=== PATIENT | female | born 1940 | race Caucasian/White ===

== ENCOUNTER 2021-08-10 05:02 | Observation (INO) ==
--- NOTE | 2021-07-12 13:49 | PAT Medication Instructions ---
Medication Instructions Date of Service July 12, 2021 Home Medications ascorbic acid (vitamin C) 1,500 mg tablet,extended release 1,500 mg PO QAM aspirin 81 mg capsule 81 mg PO QAM atenolol 50 mg-chlorthalidone 25 mg tablet 1 tab PO QAM calcium citrate 315 mg calcium-vitamin D3 6.25 mcg (250 unit) tablet (Citracal + Vitamin D Maximum) 1 tab PO QAM cholecalciferol (vitamin D3) 125 mcg (5,000 unit) tablet (Vitamin D3) 125 mcg PO QAM collagen,hydrolysate 500 mg-biotin 800 mcg-ascorbic acid 50 mg capsule 1 cap PO QAM cranberry extract 250 mg tablet 259 mg PO QAM denosumab 60 mg/mL subcutaneous syringe (Prolia) 60 mg SUBCUT UD famotidine 40 mg tablet 40 mg PO BID glucosamine-chondroitin 250 mg-200 mg tablet (Osteo Bi-Flex) 2 tab PO QAM loratadine 10 mg tablet 10 mg PO QAM lorazepam 0.5 mg tablet 0.5 mg PO HS PRN milk thistle 500 mg capsule 500 mg PO QAM multivit with ucrrsqts-jaqv-GW-lutein 8 mg iron-400 mcg-300 mcg tablet (Centrum Silver Women) 1 tab PO QAM omega-3 fatty acids 1,000 mg PO QAM piroxicam 10 mg capsule 10 mg PO UD PRN vitamin A-vitamin C-vit E-min tablet 1 tab PO QAM vitamin B complex 1 tab PO QAM vitamin E 200 unit tablet 45 mg PO QAM Continue as directed denosumab 60 mg/mL subcutaneous syringe (Prolia) 60 mg SUBCUT UD (not day of surgery) ASK your surgeon for instructions piroxicam 10 mg capsule 10 mg PO UD PRN STOP taking 2 weeks before surgery collagen,hydrolysate 500 mg-biotin 800 mcg-ascorbic acid 50 mg capsule 1 cap PO QAM glucosamine-chondroitin 250 mg-200 mg tablet (Osteo Bi-Flex) 2 tab PO QAM milk thistle 500 mg capsule 500 mg PO QAM omega-3 fatty acids 1,000 mg PO QAM vitamin A-vitamin C-vit E-min tablet 1 tab PO QAM vitamin B complex 1 tab PO QAM vitamin E 200 unit tablet 45 mg PO QAM DO NOT take the morning of surgery ascorbic acid (vitamin C) 1,500 mg tablet,extended release 1,500 mg PO QAM calcium citrate 315 mg calcium-vitamin D3 6.25 mcg (250 unit) tablet (Citracal + Vitamin D Maximum) 1 tab PO QAM cholecalciferol (vitamin D3) 125 mcg (5,000 unit) tablet (Vitamin D3) 125 mcg PO QAM cranberry extract 250 mg tablet 259 mg PO QAM loratadine 10 mg tablet 10 mg PO QAM multivit with wpntljya-piya-YT-lutein 8 mg iron-400 mcg-300 mcg tablet (Centrum Silver Women) 1 tab PO QAM Take morning of surgery With a small sip of water, OTHERWISE NOTHING TO EAT OR DRINK AFTER MIDNIGHT: aspirin 81 mg capsule 81 mg PO QAM (unless directed otherwise by surgeon) atenolol 50 mg-chlorthalidone 25 mg tablet 1 tab PO QAM famotidine 40 mg tablet 40 mg PO BID Take evening before surgery famotidine 40 mg tablet 40 mg PO BID lorazepam 0.5 mg tablet 0.5 mg PO HS PRN(if needed) Other Notes If you have any questions please call us at [phone] or [phone] or [phone] or [phone]
--- NOTE | 2021-07-14 11:54 | Anesthesiology Consultation ---
Date of Service July 14, 2021 Assessment & Plan (1) Encounter for pre-operative examination: - Patient acceptable risk for surgery pending surgeon-ordered preop UA (patient taking sample to [facility]). - COVID screening: Per assessment on 07/14: No known COVID-19 positive contacts or current COVID-19 related symptoms. Travel screen negative. Patient vaccinated. Surgeon arranging preop COVID testing. Awaiting results. - Hx PONV: Patient requests preop preventative therapy if possible - Heavy ETOH use: 3-5 drinks/day (typically whiskey)- mid afternoon/evening. No morning ETOH use. Chart Review Chart Review: Patient seen in Pre Admission Testing Teaching & Discussion Pre-Anesthesia Teaching/Discussion Notes: Instructed NPO after midnight before surgery,except medications with 15 cc of water. Medication instructions provid ed according to the PAT guidelines. History Surgery Operation Date: 08/10/21 07:15 Proposed Procedures p Left Total Knee Arthroplasty - Mario Redman MD Height/Weight Height: 5 ft 3.5 in Weight: 69.9 kg Allergies Allergy/AdvReac Type Severity Reaction Status Date / Time adhesive Allergy Intermediate Skin Verified 07/12/21 14:24 blistering Penicillins Allergy Intermediate Hives Verified 07/12/21 12:40 clindamycin Allergy Hot Verified 07/14/21 12:21 flashes, flushing meperidine [From Demerol] AdvReac Unknown Vomiting Verified 07/12/21 12:40 Medications Home Medications Medication Instructions Recorded Confirmed Last Taken ascorbic acid (vitamin C) 1,500 mg 1,500 mg PO QAM 07/12/21 07/12/21 Unknown tablet,extended release aspirin 81 mg capsule 81 mg PO QAM 07/12/21 07/12/21 Unknown atenolol 50 mg-chlorthalidone 25 1 tab PO QAM 07/12/21 07/12/21 Unknown mg tablet calcium citrate 315 mg 1 tab PO QAM 07/12/21 07/12/21 Unknown calcium-vitamin D3 6.25 mcg (250 unit) tablet (Citracal + Vitamin D Maximum) cholecalciferol (vitamin D3) 125 125 mcg PO QAM 07/12/21 07/12/21 Unknown mcg (5,000 unit) tablet (Vitamin D3) collagen,hydrolysate 500 mg-biotin 1 cap PO QAM 07/12/21 07/12/21 Unknown 800 mcg-ascorbic acid 50 mg capsule cranberry extract 250 mg tablet 259 mg PO QAM 07/12/21 07/12/21 Unknown denosumab 60 mg/mL subcutaneous 60 mg SUBCUT UD 07/12/21 07/12/21 Unknown syringe (Prolia) famotidine 40 mg tablet 40 mg PO BID 07/12/21 07/12/21 Unknown glucosamine-chondroitin 250 mg-200 2 tab PO QAM 07/12/21 07/12/21 Unknown mg tablet (Osteo Bi-Flex) loratadine 10 mg tablet 10 mg PO QAM 07/12/21 07/12/21 Unknown lorazepam 0.5 mg tablet 0.5 mg PO HS PRN 07/12/21 07/12/21 Unknown milk thistle 500 mg capsule 500 mg PO QAM 07/12/21 07/12/21 Unknown multivit with 1 tab PO QAM 07/12/21 07/12/21 Unknown eqjzmfzi-wupo-GL-lutein 8 mg iron-400 mcg-300 mcg tablet (Centrum Silver Women) omega-3 fatty acids 1,000 mg PO QAM 07/12/21 07/12/21 Unknown piroxicam 10 mg capsule 10 mg PO UD PRN 07/12/21 07/12/21 Unknown vitamin A-vitamin C-vit E-min 1 tab PO QAM 07/12/21 07/12/21 Unknown tablet vitamin B complex 1 tab PO QAM 07/12/21 07/12/21 Unknown vitamin E 200 unit tablet 45 mg PO QAM 07/12/21 07/12/21 Unknown Past Medical History Medical History GERD (gastroesophageal reflux disease) Hypertension Irregular heart beat 3 total episodes (early ), felt r/t dehydration, no current/recent issues Prediabetes Sleep apnea Does not use device Thyroid nodule s/p needle bx (benign) Exercise / Class Metabolic Activity III < 4 Walking/Shop/Light housework Past Surgical History Surgical History Nausea and vomiting after administration of anesthetic agent S/P breast biopsy 10 years ago S/P colonoscopy S/P D&C (status post dilation and curettage) S/P hysterectomy S/P tonsillectomy Past Anesthesia History No Hx of Anesthesia Complications (except PONV) and No Family Hx of Anesthesia Complications History of PONV No Hx of Motion Sickness and History of PONV (Pt requests preop preventative therapy if possible) Social History Smoking Status: Never smoker Do You Dip or Chew Tobacco: No Hx Alcohol Use: Yes (3 per day) Alcohol type: hard liquor alcohol intake frequency: 3 or more drinks per day (3-5 drinks/day (typically whiskey)) Hx Substance Use: No substance use type: does not use Review of Systems Patient denies chest pain, shortness of breath, fever, chills, cough, wheezing, palpitations. Physical Exam Vital Signs VITALS BP 138/76 P 84 TEMP 98.4 SP02 97%RA RESP 16 PHYSICAL Full cervical extension range of motion. Full TMJ range of motion. TMD 3 finger breaths Mallampati Score 3 Dentition: missing molars, + root canal repair Lungs: clear throughout to auscultation Cardiac: regular rate and rhythm, no murmurs noted Spine: normal Carotid arteries: negative bruit Extremities: no edema Lab Results Anesthesia Preop Results Results Anesthesia Widget: WBC 5.81 K/uL (4.8-10.8) 07/14/21 Hgb 14.6 g/dL (12.0-16.0) 07/14/21 Hct 42.4 % (37-47) 07/14/21 Plt 266 K/uL (130-400) 07/14/21 Na 133 mmol/L (136-145) L 07/14/21 K 3.3 mmol/L (3.5-5.1) L 07/14/21 Cl 94 mmol/L (98-107) L 07/14/21 CO2 29 mmol/L (21-32) 07/14/21 BUN 19 mg/dl (6-23) 07/14/21 Creat 0.65 mg/dl (0.6-1.2) 07/14/21 Glucose Level 152 mg/dl (70-99(Fasting)) H 07/14/21 PT 10.3 Seconds (9.0-12.0) 07/14/21 PTT 23.4 Seconds (21.0-31.0) 07/14/21 INR 1.0 (0.9-1.1) 07/14/21 HA1c 5.8 % (4.5-5.6) H 07/14/21 Blood Type A Negative 07/14/21 Antibody Screen NEGATIVE 07/14/21 Testing Electrocardiogram Date: 07/14/21 NSR at 79bpm. unconfirmed report. Chest X-Ray Date: 07/14/21 Findings: + NAD
--- NOTE | 2021-08-07 20:00 | History & Physical Report ---
Date of Service August 07, 2021 Assessment & Plan (1) Primary osteoarthritis of left knee: Plan: Treatment options discussed with patient. She has failed conservative measures as above. Risks, benefits and alternatives to surgery including but not limited to infection, DVT, pain, stiffness, need for revision surgery, damage to blood vessels, damage to nerves, PE, , were discussed with the patient and they wish to proceed. Plan on left total knee arthroplasty scheduled for [facility] on 08/10/[address] Redman. Will plan on aspirin 81mg twice daily post op for DVT prophylaxis, OPPT post op. All questions answered. F/u post op. History of Present Illness Chief Complaint: Left knee pain Primary Care Provider: Jasmin Noe 80 year old female with PMHx significant for HTN, SUNNY, GERD presents with ongoing left knee pain. Pain is interfering with her daily activities. She has failed conservative measures and would like to proceed with surgical intervention. Patient denies headaches, sweats, fevers, chills, double vision, blurred vision, cough, sore throat, dysphagia, chest pain, sob, wheezing, n/v/d/c, numbness, tingling, fatigue, urinary symptoms, mood disorders. ROS positive for left knee pain and stiffness. Allergies Allergy/AdvReac Type Severity Reaction Status Date / Time adhesive Allergy Intermediate Skin Verified 07/12/21 14:24 blistering Penicillins Allergy Intermediate Hives Verified 07/12/21 12:40 clindamycin Allergy Hot Verified 07/14/21 12:21 flashes, flushing meperidine [From Demerol] AdvReac Unknown Vomiting Verified 07/12/21 12:40 Home Medications Medication Instructions Recorded Confirmed Type ascorbic acid (vitamin C) 1,500 mg 1,500 mg PO QAM 07/12/21 07/12/21 History tablet,extended release aspirin 81 mg capsule 81 mg PO QAM 07/12/21 07/12/21 History atenolol 50 mg-chlorthalidone 25 1 tab PO QAM 07/12/21 07/12/21 History mg tablet calcium citrate 315 mg 1 tab PO QAM 07/12/21 07/12/21 History calcium-vitamin D3 6.25 mcg (250 unit) tablet (Citracal + Vitamin D Maximum) cholecalciferol (vitamin D3) 125 125 mcg PO QAM 07/12/21 07/12/21 History mcg (5,000 unit) tablet (Vitamin D3) collagen,hydrolysate 500 mg-biotin 1 cap PO QAM 07/12/21 07/12/21 History 800 mcg-ascorbic acid 50 mg capsule cranberry extract 250 mg tablet 259 mg PO QAM 07/12/21 07/12/21 History denosumab 60 mg/mL subcutaneous 60 mg SUBCUT UD 07/12/21 07/12/21 History syringe (Prolia) famotidine 40 mg tablet 40 mg PO BID 07/12/21 07/12/21 History glucosamine-chondroitin 250 mg-200 2 tab PO QAM 07/12/21 07/12/21 History mg tablet (Osteo Bi-Flex) loratadine 10 mg tablet 10 mg PO QAM 07/12/21 07/12/21 History lorazepam 0.5 mg tablet 0.5 mg PO HS PRN 07/12/21 07/12/21 History milk thistle 500 mg capsule 500 mg PO QAM 07/12/21 07/12/21 History multivit with 1 tab PO QAM 07/12/21 07/12/21 History yajmiwmc-qteb-FX-lutein 8 mg iron-400 mcg-300 mcg tablet (Centrum Silver Women) omega-3 fatty acids 1,000 mg PO QAM 07/12/21 07/12/21 History piroxicam 10 mg capsule 10 mg PO UD PRN 07/12/21 07/12/21 History vitamin A-vitamin C-vit E-min 1 tab PO QAM 07/12/21 07/12/21 History tablet vitamin B complex 1 tab PO QAM 07/12/21 07/12/21 History vitamin E 200 unit tablet 45 mg PO QAM 07/12/21 07/12/21 History Past Med/Surg History Medical History GERD (gastroesophageal reflux disease) Hypertension Irregular heart beat 3 total episodes (early ), felt r/t dehydration, no current/recent issues Prediabetes Sleep apnea Does not use device Thyroid nodule s/p needle bx (benign) Surgical History Nausea and vomiting after administration of anesthetic agent S/P breast biopsy 10 years ago S/P colonoscopy S/P D&C (status post dilation and curettage) S/P hysterectomy S/P tonsillectomy Social History Smoking Status: Never smoker Second Hand Exposure: No; Hx Alcohol Use: Yes (3 per day) Alcohol type: hard liquor Hx Substance Use: No Preferred Language: B[place] Communication Ability: Effective Rawhide Trimmer Required: No Beliefs That Will Affect Care: None Current Living Situation: Alone Current Living Situation Comment: son and family will help Feels Safe at Home: Yes Assistive Devices: Cane, Glasses, Hearing Aid - Bilateral and Walker Review of Systems All systems reviewed & are unremarkable except as noted in HPI & below Physical Exam Constitutional: well developed and well nourished; no acute distress Eyes: PERRL, conjunctivae normal, anicteric sclerae ENMT: external ear and nose normal, oropharynx normal Neck: trachea midline, no thyromegaly Respiratory: normal respiratory effort, lungs clear to auscultation Cardiovascular: RRR, no murmur, no edema Musculoskeletal: Left knee: Varus alignment. Medial joint line and medial patellar tenderness. Mild swelling. Moderate crepitation. Positive Hayley's. Positive valgus stress, negative varus. ROM 0-130 degrees. Skin: no rashes, warm and dry Neurologic: patellar DTR's 2+ bilat, sensation intact Psychiatric: A+Ox3, euthymic affect Results & Data ([facility]) Diagnostic Findings Left knee: Endstage osteoarthritis, likely insufficiency fracture vs AVN medial femoral condyle, bone on bone medial compartment with subluxation. Endstage OA PF compartment.
[2021-08-10] MEDS ORDERED: METOCLOPRAMIDE HCL 10 MG TABLET PO SCH (06:00)
[2021-08-10] MEDS ORDERED: FAMOTIDINE 20 MG TAB PO SCH (06:00)
[2021-08-10] MEDS ORDERED: ROPIVACAINE 0.5% HCL/PF 150 MG, BUPIVACAINE 0.75% MPF 20 ML, EPINEPHrine 30MG/30ML (OR ... INSTIL SCH (06:00)
[2021-08-10] MEDS ORDERED: ACETAMINOPHEN 500 MG TAB PO SCH (06:00)
[2021-08-10] MEDS ORDERED: LR 500ML BOLUS, THEN 15ML/HR IV SCH (06:00)
[2021-08-10] MEDS ORDERED: dexAMETHasone 4 MG TAB PO SCH (06:00)
[2021-08-10] MEDS ORDERED: CeleBREX 200 MG CAP PO SCH (06:00)
[2021-08-10] MEDS ORDERED: VANCOMYCIN HCL 1,000 MG in SODIUM CHLORIDE 0.9% 250 ML IV SCH ×2 (06:00→18:00)
[2021-08-10] MEDS ORDERED: TRANEXAMIC ACID 1,000 MG **IV Pre-op IV SCH (06:00)
[2021-08-10] MEDS ORDERED: TRANEXAMIC ACID 1,000 MG **IV Intra-op IV SCH (06:00)
[2021-08-10] MEDS ORDERED: GABAPENTIN 300 MG CAP PO SCH (06:00)
[2021-08-10] MEDS ORDERED: BUPIVACAINE 0.5 % 5 MG/1 ML PF 10ML VIAL ONE (06:23)
[2021-08-10] MEDS ORDERED: ROPIVACAINE 0.5% 5 MG/ML 30 ML VIAL ONE (06:23)
[2021-08-10] MEDS ORDERED: LIDOCAINE 2% 2 ML VIAL/AMP(20MG/ML) INFIL ONE (06:54)
[2021-08-10] MEDS ORDERED: MIDAZOLAM HCL 1 MG/ML 2ML VIAL ONE (06:55)
[2021-08-10] MEDS ORDERED: fentaNYL citrate 100 MCG/2 ML VIAL ONE (06:55)
--- NOTE | 2021-08-10 07:03 | History & Physical Bridge Note ---
Date of Service August 10, 2021 History & Physical Bridge Note I have examined the patient, reviewed the History & Physical and in the interval since the performance of the History & Physical I have noted the following changes of clinical significance: no changes noted
[2021-08-10] MEDS ORDERED: ORTHO JOINT ANESTHETIC ONE (07:11)
[2021-08-10] MEDS ORDERED: PHENYLEPHRINE HCL 10 MG/ML VIAL ONE (08:09)
[2021-08-10] MEDS ORDERED: ONDANSETRON INJ 2 MG/ML 2 ML VIAL ONE (08:09)
[2021-08-10] MEDS ORDERED: ATROPINE SULFATE 0.1 MG/ML 10ML SYR IV PRN (08:41)
[2021-08-10] MEDS ORDERED: ONDANSETRON INJ 2 MG/ML 2 ML VIAL IV PRN ×2 (08:41→12:03)
[2021-08-10] MEDS ORDERED: fentaNYL citrate 100 MCG/2 ML VIAL IV PRN (08:41)
[2021-08-10] MEDS ORDERED: PROMETHAZINE HCL 12.5 MG in SODIUM CHLORIDE 0.9% 50 ML IV PRN (08:41)
[2021-08-10] MEDS ORDERED: ePHEDrine sulfate 50 MG/ML AMP IV PRN (08:41)
[2021-08-10] MEDS ORDERED: PROPOFOL IV EMULSION 10 MG/ML 20 ML VIAL IV ONE (08:42)
--- NOTE | 2021-08-10 09:25 | Operative Report ---
Post Operative Report Pre & Post Diagnosis Operation Date: 08/10/21 07:15 Pre-Op Diagnosis: Left Knee Osteoarthritis Post-Op Diagnosis: Left Knee Osteoarthritis I identified the patient and participated in the time-out.: Yes Procedure Operation Date: 08/10/21 07:15 Actual Procedures p Left Total Knee Arthroplasty(Left) - Mario Redman MD Surgeon Mario Redman MD Stake Setter Cam EDWARDS Estimated Blood Loss 5 Findings Consistent with Post-Op Diagnosis Specimens Bone cuts Drains 2 Hemovac Complications none Disposition Disposition: Recovery Room Indications 80-year female with end-stage osteoarthritis left knee. Patient has evidence of an insufficiency fracture or AVN medial femoral condyle with slight collapse and [id number] medial compartment subluxation of the femur medial in the tibia and grade 4 medial compartment patellofemoral OA as well. Description of Procedure Patient was taken to the operating room placed supine on the operating table and anesthetized under spinal MAC regional block anesthesia. Exam under anesthesia demonstrated mild varus alignment of the knee good range of motion moderate effusion no instability. A pneumatic tourniquet was placed about the thigh of the left lower extremity. The left lower extremity was prepped and draped in usual sterile fashion. The leg was elevated exsanguinated with an Esmarch ba ndage and the pneumatic tourniquet was raised to 300 mm mercury. An anterior incision was made across the left knee. The skin was incised longitudinally subcutaneous flaps were elevated and an incision was made through the medial retinaculum extending up into the mid third of the quadriceps tendon and extended down to the medial tibial tubercle. Intra-articular findings demonstrated tricompartmental osteoarthritis [id number] medial compartment grade 4 osteoarthritis lateral femoral condyle grade 4 medial patellofemoral joint. The knee was exposed by excising the infrapatellar fat pad, excising the meniscal remnants and anterior cruciate ligament. Any inflamed synovial tissue was resected. The fat pad over the anterior femur was resected for placement of the component in that area. The lateral synovial bands were release. The femur was exposed. The custom femoral cutting block was pinned in position. The distal femoral cutting block was applied. The distal femoral cut was made with the oscillating saw. The size 6 4-in-1 cutting block was placed. The anterior and posterior chamfer cuts were made. The knee was extended and a subperiosteal peel lateral release was performed around the patella. The patella width was measured and width was reproduced using freehand cut technique. The 32 millimeter symmetrical patella was used. 3 drill holes are made for the pegs. The tibia was exposed. A custom tibial cutting block was positioned and drill holes were made for the cutting guide. Cutting guide was placed and the proximal cut was made with the oscillating saw. All osteophytes were resected. The lamina cook house supervisor was used to assess ligamentous balance and the ligaments were balanced in extension and flexion. The tibia was reexposed and measured for a size D tibial component. This was externally rotated in line with the tibial tubercle and the fixation pins were drilled. The proximal tibia was fashioned with the drill and punch. The size 6 CR femoral trial was inserted. The trial MC inserts were used. The 11 mm insert gave balanced ligaments through full range of motion. The patella tracked centrally. the trials were removed. The orthomix anesthetic cocktail was injected per protocol. The knee was then copiously irrigated with pulsatile lavage saline solution. The final components were cemented with Refobacin bone cement. The final components were [employer] persona left 6 narrow CR femoral component, D left tibial component, 11 mm MC tibial polyethylene, 32 symmetrical patella. After the cement cured with the knee in full extension the Betadine soak was used per protocol. The knee joint was copiously irrigated with pulsatile lavage saline solution . 2 drains were brought out laterally and connected to a Hemovac. The quadriceps tendon and medial retinaculum were closed with interrupted [id number] #1 Vicryl sutures. The knee was taken through a full range of motion and repair was secure. The subcutaneous tissues were closed with 2-0 Vicryl sutures and skin was closed with lakshmi. Sterile dressings were applied and the patient tolerated the procedure well. Cam EDWARDS my physician senior administrative assistant participated as first beater and was involved in all aspects of the procedure. He assisted in soft tissue retraction, instrument management ,leg positioning, the closure and will participate in the postoperative care of the patient. I attest to the content of the Intraoperative Record and any orders documented therein. Any exceptions are noted below.
--- NOTE | 2021-08-10 09:26 | Post Operative Brief Note ---
Immediate Post Op Note v1 Date of Surgery August 10, 2021 Pre & Post Diagnosis Operation Date: 08/10/21 07:15 Pre-Op Diagnosis: Left Knee Osteoarthritis Post-Op Diagnosis: Left Knee Osteoarthritis I identified the patient and participated in the time-out.: Yes Procedure Operation Date: 08/10/21 07:15 Actual Procedures p Left Total Knee Arthroplasty(Left) - Mario Redman MD Surgeon Mario Redman MD Respite Care Provider Cam EDWARDS Estimated Blood Loss 5 Findings Consistent with Post-Op Diagnosis Specimens Bone cuts Drains Hemovac Drain Anesthesia Type MAC Spinal Regional Complications none Disposition Disposition: Recovery Room Overlapping Procedure I was immediately available: during the entire case.
--- NOTE | 2021-08-10 10:14 | XRay Report ---
XR knee LT 1 or 2V routine HISTORY: 80 years-old Female Surgical Post Op left knee total joint arthroplasty COMPARISON: None TECHNIQUE: 3 views of the left knee FINDINGS: Total joint arthroplasty with patellar resurfacing. Anterior midline skin lakshmi are noted along wit h expected postoperative soft tissue swelling and deep tissue air with surgical drainage catheter. Il l-defined sclerosis involving the mid femoral diaphysis medullary space is likely benign. No acute fr acture or unexpected opaque foreign body. IMPRESSION: Total joint arthroplasty and patella resurfacing with expected postoperative changes. ACT 112: Negative or not required by law. The above report was generated using voice recognition software. It may contain grammatical, syntax o r spelling errors. Electronically signed by: Tez Enrique M.D. 08/10/2021 10:13 AM
--- NOTE | 2021-08-10 11:06 | Anesthesiology Progress Note ---
Date of Service August 10, 2021 Anesthesia Post Procedure Vital Signs Vital Signs: Temp Pulse Pulse Resp BP Pulse Ox 08/10/21 10:55 68 18 111/62 95 08/10/21 10:45 67 18 116/62 95 08/10/21 10:35 66 15 111/61 95 08/10/21 10:25 69 16 107/74 95 08/10/21 10:15 72 18 123/76 95 08/10/21 10:05 73 15 109/68 93 08/10/21 09:55 76 19 135/79 100 08/10/21 09:45 77 18 116/79 100 08/10/21 09:36 36.1 C L 77 15 101/64 100 08/10/21 05:28 36.5 C 70 20 152/90 H 97 Transfer of Care Handoff Completed per policy Notes Mental Status: alert / awake / arousable and participated in evaluation Patient Amnestic to Procedure: Yes Nausea / Vomiting: adequately controlled Pain: adequately controlled Airway Patency, RR, SpO2: stable & adequate BP & HR: stable & adequate Hydration State: stable & adequate Neuraxial Anesthesia: was administered and sensory block is resolving Anesthetic Complications: no major complications apparent
[2021-08-10] MEDS ORDERED: HYDROmorphone INJ 0.5 MG/0.5 ML SYR IV PRN (12:03)
[2021-08-10] MEDS ORDERED: NALOXONE HCL 0.4 MG/1 ML VIAL/CARP IV PRN (12:03)
[2021-08-10] MEDS ORDERED: MAGNESIUM HYDROXIDE SUSP 30 ML UDC PO PRN (12:03)
[2021-08-10] MEDS ORDERED: oxyCODONE HCL IR 5 MG TAB (IMMEDIATE RELEASE) PO PRN (12:03)
[2021-08-10] MEDS ORDERED: SODIUM CHLORIDE 0.9% 1000ML 1,000 ML IV SCH (12:03)
[2021-08-10] MEDS ORDERED: VANCOMYCIN CONSULT ACTIVE PRN (12:03)
[2021-08-10] MEDS ORDERED: bisacodyL 10 MG SUPP PR PRN (12:03)
[2021-08-10] MEDS ORDERED: METOCLOPRAMIDE HCL INJ 5 MG/ML 2 ML VIAL IV PRN (12:03)
--- NOTE | 2021-08-10 12:47 | Consultation ---
Date of Consultation August 10, 2021 Assessment & Plan (1) Primary osteoarthritis of left knee: (2) Hypertension: (3) GERD (gastroesophageal reflux disease): (4) Prediabetes: This is an 80 yr old F who has a significant PMH of HTN, pre diabetes, SUNNY not on CPAP and Gerd who presents for elective L TKA by Dr. Redman. L Knee Osteoarthritis S/P L TKA - POD # 0, Dr. Redman EBL 5ml tolerated procedure well Pain/wound management per orthopedics Activity and therapy as directed by orthopedics Encourage incentive spirometry DVT prophylaxis with ASA twice daily HTN Blood pressure controlled Continue atenolol/chlorthalidone with parameters GERD Continue famotidine Prediabetes A1c 5.8 on preop labs Given age lifestyle modifications recommended Alcohol dependence Drinks 3-4 whiskey drinks daily DELGADO as protocol with as needed oral Ativan Daily thiamine and folic acid DVT prophylaxis: ASA twice daily Dispo: Per primary PCP: HASMUKH Marroquin FULL CODE Pt was seen and examined in collaboration with Dr. Kwan, please see addendum Thank you for this consultation. We will follow the patient with you during their hospital stay. You can reach a member of the [facility] Hospitalist Team 11/09 via hospitalist role on tiger text. Supervising Physician Co-Signing Physician Notes Patient is an 80-year-old female with history of hypertension, obstructive sleep apnea and other comorbidities was consulted for postop medical management after having left total knee arthroplasty by . Patient is doing well postoperatively. She still has some numbness on left leg. Denies any chest pain, shortness of breath, dizziness, nausea, abdominal pain. Discussed in detail with patient and her family at bedside. On exam patient is moderately built and nourished, no apparent distress, normocephalic atraumatic, EOMI, S1- S2, no murmur, no pedal edema, abdomen soft, nontender, normal bowel sounds, alert, awake, oriented, grossly no focal deficits,+ hearing impairment,+ left lower extremity in surgical dressing, drain. Postoperative state. Pain contr ol, wound care, activity as per primary team. On aspirin 81 mg twice daily for DVT prophylaxis. Incentive spirometry, bowel regimen to prevent constipation. Monitor for postop anemia. Continue home medications for hypertension, GERD. Monitor for alcohol withdrawal given history of alcohol use. Agree with thiamine, folic acid and Ativan as needed. I personally reviewed the record. Patient is interviewed and examined at bedside. Patient's care is coordinated with Vicki Thompson PA-C. Please refer to the documentation above for details of patient's presentation and for discussion of other issues. History of Present Illness Requesting Physician: Dr. Redman Reason for Consultation: Postop medical management Attending Physician: Mario Redman MD History of Present Illness This is an 80 yr old F who has a significant PMH of HTN, pre diabetes, SUNNY not on CPAP and Gerd who presents for elective L TKA by Dr. Redman. She tolerated the procedure well. She is able to slowly start moving her bilateral lower extremities. She currently denies any left knee pain. She did tolerate lunch and denies any nausea or vomiting. She is otherwise healthy at baseline given age. She has a history of hypertension controlled on atenolol chlorthalidone. She also has GERD controlled on Pepcid. She does drink 3-4 whiskey and water drinks daily. She does not use tobacco products. Her son is at bedside. She denies any recent illness, fever, chills, sweats, lightheadedness, dizziness, chest pain, shortness of breath, cough, abdominal pain, change in bowel or urinary habits. She lives alone with family close by. Allergies Allergy/AdvReac Type Severity Reaction Status Date / Time adhesive Allergy Intermediate Skin Verified 08/10/21 05:30 blistering Penicillins Allergy Intermediate Hives Verified 08/10/21 05:30 clindamycin Allergy Hot Verified 08/10/21 05:30 flashes, flushing meperidine [From Demerol] AdvReac Unknown Vomiting Verified 08/10/21 05:30 Home Medications Medication Instructions Recorded Confirmed Type ascorbic acid (vitamin C) 1,500 mg 1,500 mg PO QAM 07/12/21 08/10/21 History tablet,extended release aspirin 81 mg capsule 81 mg PO QAM 07/12/21 08/10/21 History atenolol 50 mg-chlorthalidone 25 1 tab PO QAM 07/12/21 08/10/21 History mg tablet calcium citrate 315 mg 1 tab PO QAM 07/12/21 08/10/21 History calcium-vitamin D3 6.25 mcg (250 unit) tablet (Citracal + Vitamin D Maximum) cholecalciferol (vitamin D3) 125 125 mcg PO QAM 07/12/21 08/10/21 History mcg (5,000 unit) tablet (Vitamin D3) collagen,hydrolysate 500 mg-biotin 1 cap PO QAM 07/12/21 08/10/21 History 800 mcg-ascorbic acid 50 mg capsule cranberry extract 250 mg tablet 259 mg PO QAM 07/12/21 08/10/21 History denosumab 60 mg/mL subcutaneous 60 mg SUBCUT UD 07/12/21 08/10/21 History syringe (Prolia) famotidine 40 mg tablet 40 mg PO BID 07/12/21 08/10/21 History glucosamine-chondroitin 250 mg-200 2 tab PO QAM 07/12/21 08/10/21 History mg tablet (Osteo Bi-Flex) loratadine 10 mg tablet 10 mg PO QAM 07/12/21 08/10/21 History lorazepam 0.5 mg tablet 0.5 mg PO HS PRN 07/12/21 08/10/21 History milk thistle 500 mg capsule 500 mg PO QAM 07/12/21 08/10/21 History multivit with 1 tab PO QAM 07/12/21 08/10/21 History fuyeqlrn-cppt-WL-lutein 8 mg iron-400 mcg-300 mcg tablet (Centrum Silver Women) omega-3 fatty acids 1,000 mg PO QAM 07/12/21 08/10/21 History piroxicam 10 mg capsule 10 mg PO UD PRN 07/12/21 08/10/21 History vitamin A-vitamin C-vit E-min 1 tab PO QAM 07/12/21 08/10/21 History tablet vitamin B complex 1 tab PO QAM 07/12/21 08/10/21 History vitamin E 200 unit tablet 45 mg PO QAM 07/12/21 08/10/21 History Patient History Medical History (Updated 08/10/21 @ 13:18 by Vicki Thompson PA-C) GERD (gastroesophageal reflux disease) Hypertension Irregular heart beat 3 total episodes (early ), felt r/t dehydration, no current/recent issues Prediabetes Sleep apnea Does not use device Thyroid nodule s/p needle bx (benign) Surgical History Nausea and vomiting after administration of anesthetic agent S/P breast biopsy 10 years ago S/P colonoscopy S/P D&C (status post dilation and curettage) S/P hysterectomy S/P tonsillectomy Family History (Updated 08/10/21 @ 13:16 by Vicki Thompson PA-C) Other Heart disease Hypertension Stroke Social History Smoking Status: Never smoker Second Hand Exposure: No; Do You Dip or Chew Tobacco: No; Tobacco Cessation Education Requested by Patient: No Hx Alcohol Use: Yes (3 per day) Alcohol type: hard liquor Hx Substance Use: No Preferred Language: Gambian Communication Ability: Effective Dietist Required: No Beliefs That Will Affect Care: None marital status: / Current Living Situation: Alone Current Living Situation Comment: son and family will help Other Information That Helps Us Care for You: No Feels Safe at Home: Yes Safety Concerns: Feels Safe At This Time Assistive Devices: Walker Assistive Devices Comment: USES CANE OCCASIONALLY Review of Systems Review of Systems: All systems reviewed & are unremarkable except as noted in HPI & below Physical Exam Physical Exam: Constitutional: WD/WN, vitals as above, NAD, sitting up in bed, pleasant, conversing easily Head: Normocephalic, Atraumatic Eyes: PERRL, conjunctivae normal, anicteric sclerae ENMT: external ear and nose normal, oropharynx normal Neck: trachea midline, no thyromegaly normal visual inspection Respiratory: normal respiratory effort, lungs clear to auscultation, no wheeze, rales, rhonchi. Normal insp/exp effort, no accessory muscle use Cardiovascular: RRR, no murmur, no edema Vessels: no JVD or carotid bruit Chest: normal inspection of chest Abdomen: normal bowel sounds, soft, nontender, no hepatosplenomegaly Musculoskeletal: no cyanosis or clubbing, AROM b/l upper ext, LLE L TKR, dressing CDI, hemovac in place Skin: no rashes, warm and dry normal turgor Neurologic: PERRL, EOMI, accommodation nl, no face palsy, no dysarthria CN's II-XI intact bilaterally and moves all extremities Psychiatric: A+Ox3, euthymic affect Lymphatic: no cervical or axillary lymphadenopathy : deferred Results & Data ([facility]) Vital Signs (Past 12 Hours) Vital Signs Temp Pulse Pulse Resp BP Pulse Ox 08/10/21 12:24 36.5 C 75 16 122/78 96 08/10/21 11:45 36.5 C 73 16 111/70 97 08/10/21 11:30 36 C L 70 19 110/65 99 08/10/21 11:15 68 14 103/61 98 08/10/21 11:05 36.5 C 70 17 113/69 92 08/10/21 10:55 68 18 111/62 95 08/10/21 10:45 67 18 116/62 95 08/10/21 10:35 66 15 111/61 95 08/10/21 10:25 69 16 107/74 95 08/10/21 10:15 72 18 123/76 95 08/10/21 10:05 73 15 109/68 93 08/10/21 09:55 76 19 135/79 100 08/10/21 09:45 77 18 116/79 100 08/10/21 09:36 36.1 C L 77 15 101/64 100 08/10/21 05:28 36.5 C 70 20 152/90 H 97 Laboratory Results preo op labs 07/14/21 A1C 5.8 Na 122, K 3.3, bun 19. cr 0.65 Diagnostic Findings 07/14/21 CXR - no acute abnormality Knee X-Ray 08/10/21 09:47 XR knee LT 1 or 2V routine HISTORY: 80 years-old Female Surgical Post Op left knee total joint arthroplasty COMPARISON: None TECHNIQUE: 3 views of the left knee FINDINGS: Total joint arthroplasty with patellar resurfacing. Anterior midline skin lakshmi are noted along with expected postoperative soft tissue swelling and deep tissue air with surgical drainage catheter. Ill-defined sclerosis involving the mid femoral diaphysis medullary space is likely benign. No acute fracture or unexpected opaque foreign body. IMPRESSION: Total joint arthroplasty and patella resurfacing with expected postoperative changes. ACT 112: Negative or not required by law. The above report was generated using voice recognition software. It may contain grammatical, syntax or spelling errors. Electronically signed by: Tez Enrique M.D. 08/10/2021 10:13 AM Medications Administered Current Inpatient Medications Acetaminophen (Acetaminophen 500 Mg Tab) 1,000 mg PO Q8 [facility] Stop: 09/09/21 13:59 Ascorbic Acid (Ascorbic Acid 500 Mg Tab) 1,500 mg PO QAM [facility] Stop: 09/10/21 08:59 Aspirin (Aspirin 81 Mg Ectab) 81 mg PO BID [facility] Stop: 09/09/21 20:59 Atenolol (Atenolol 50 Mg Tablet) 50 mg PO QAM [facility] Stop: 09/10/21 08:59 Bisacodyl (Bisacodyl 10 Mg Supp) 10 mg [place] DAILY PRN PRN Reason: Constipation Stop: 09/09/21 12:02 Celecoxib (Celebrex 200 Mg Cap) 200 mg PO BID [facility] Stop: 09/09/21 20:59 Chlorthalidone (Chlorthalidone 25 Mg Tab) 25 mg PO QAM [facility] Stop: 09/10/21 08:59 Docusate Sodium (Docusate Sodium 100 Mg Cap) 100 mg PO BID [facility] Stop: 09/09/21 20:59 Famotidine (Famotidine 40 Mg Tablet) 40 mg PO BID [facility] Stop: 09/09/21 20:59 Folic Acid (Folic Acid 1 Mg Tab) 1 mg PO QAM [facility] Stop: 09/09/21 13:59 Hydromorphone HCl (Hydromorphone Inj 0.5 Mg/0.5 Ml Syr) 0.25 mg IV Q4H PRN PRN Reason: Pain or Pre PT Stop: 08/24/21 12:02 Sodium Chloride (Nss 1000ml) 1,000 mls @ 100 mls/hr IV .Q10H [facility] Stop: 08/11/21 06:00 Vancomycin HCl 1,000 mg/ (Sodium Chloride) 250 mls @ 200 mls/hr IV Q12H [facility] Stop: 08/10/21 19:14 Loratadine (Loratadine 10 Mg Tab) 10 mg PO QAM [facility] Stop: 09/10/21 08:59 Lorazepam (Lorazepam 0.5 Mg Tab) 0.5 mg PO HS PRN PRN Reason: Sleep Stop: 09/09/21 12:02 Lorazepam (Lorazepam 1 Mg Tab) 1 - 3 mg PO UD PRN; Protocol PRN Reason: EtoH Withdrawal AWSS 6-10+ Stop: 09/09/21 13:07 Magnesium Hydroxide (Magnesium Hydroxide Susp 30 Ml Udc) 30 ml PO Q6H PRN PRN Reason: Constipation Stop: 09/09/21 12:02 Metoclopramide HCl (Metoclopramide Hcl Inj 5 Mg/Ml 2 Ml Vial) 10 mg IV Q6H PRN PRN Reason: Nausea And Vomiting Stop: 09/09/21 12:02 [facility]ivit[facility] ([facility]itamin Tab) [facility] Stop: 09/10/21 08:59 Multivitamins/Minerals (Calcium 600mg + Vit D 400 Iu Tab) [facility] Stop: 09/10/21 08:59 Naloxone HCl (Naloxone Hcl 0.4 Mg/1 Ml Vial/Carp) 0.1 mg IV Q5M PRN PRN Reason: Oversedation/Resp Depression Stop: 09/09/21 12:02 Ondansetron HCl (Ondansetron Inj 2 Mg/Ml 2 Ml Vial) 4 mg IV Q6H PRN PRN Reason: Nausea And Vomiting Stop: 09/09/21 12:02 Oxycodone HCl (Oxycodone Hcl Ir 5 Mg Tab (Immediate Release)) 5 - 10 mg PO Q4H PRN PRN Reason: Pain or Pre PT Stop: 08/24/21 12:02 Sennosides (Senna 8.6 Mg Tab) 17.2 mg PO [facility] Stop: 09/09/21 20:59 Thiamine HCl (Thiamine Hcl 100 Mg Tab) 100 [facility] Stop: 09/09/21 13:59 Vitamin B Complex (Vitamin B Complex Tab) 1 [facility] Stop: 09/10/21 08:59 Vitamin D (Cholecalciferol 5,000 Units 125 Mcg Tab) 5,000 units [facility] Stop: 09/10/21 08:59 Vitamin E (Tocopheryl, Dl-Alpha 100 Units Cap) 200 units [facility] Stop: 09/10/21 08:59
[2021-08-10] MEDS ORDERED: LORazepam 1 MG TAB PO PRN (13:08)
[2021-08-10] MEDS: ACETAMINOPHEN 500 MG TAB PO SCH ×2 (13:56→20:43)
[2021-08-10] MEDS: FOLIC ACID 1 MG TAB PO SCH (15:03)
[2021-08-10] MEDS: THIAMINE HCL 100 MG TAB PO SCH (15:03)
[2021-08-10] MEDS: FAMOTIDINE 40 MG TABLET PO SCH (20:43)
[2021-08-10] MEDS: CeleBREX 200 MG CAP PO SCH (20:43)
[2021-08-10] MEDS: SENNA 8.6 MG TAB PO SCH (20:44)
[2021-08-10] MEDS: ASPIRIN 81 MG ECTAB PO SCH (20:44)
[2021-08-10] MEDS: DOCUSATE SODIUM 100 MG CAP PO SCH (20:45)
[2021-08-10] MEDS: LORazepam 0.5 MG TAB PO PRN (23:08)
[2021-08-11 06:19] LABS: Hematocrit (blood only) 31.3 % (37-47); Hemoglobin 11.1 g/dL (12.0-16.0); Mean Corpuscular Hemoglobin 31.2 pg (25-34); Mean Corpuscular Hgb Conc 35.5 g/dL (32-36); Mean Corpuscular Volume 87.9 fL (80-100); Mean Platelet Volume 9.5 fL (7.4-10.4); Platelet Count 198 K/uL (130-400); RDW Coefficient of Variation 12.6 % (11.5-14.5); RDW Standard Deviation 40.8 fL (36.4-46.3); Red Blood Count 3.56 M/uL (4.2-5.4); White Blood Count 8.91 K/uL (4.8-10.8)
[2021-08-11] MEDS: ACETAMINOPHEN 500 MG TAB PO SCH ×3 (06:22→22:04)
[2021-08-11 06:44] LABS: BUN Creatinine Ratio 31.5 (10-20); Calcium 8.2 mg/dl (8.5-10.1); Creatinine Clr Calc Pharmacy 77.4 ml/min; Est GFR (African American) 102.6 ml/min; Est GFR (Non-African American) 88.5 ml/min; Potassium 3.5 mmol/L (3.5-5.1)
--- NOTE | 2021-08-11 08:10 | Orthopedic Progress Note ---
Date of Service August 11, 2021 Assessment & Plan (1) Primary osteoarthritis of left knee: Plan: Postop day 1 status post left total knee arthroplasty Hyponatremia-patient was noted to be hyponatremic prior to surgery around 133. Morning she is at 125. Will discuss with medicine service. PT/OT protocols. Weightbearing as tolerated. DVT prophylaxis-aspirin p.o. twice daily, SCDs, MARANDA hose. Pain management as written DC planning-patient is planning for outpatient PT upon discharge. Admission and Anticipated Discharge Date Admission Date: August 10, 2021 Subjective Postop day 1 Patient sleeping upon entering her room. Easily awoken. States she had kind of a rough night. She had developed a left foot drop secondary to intraoperative injection however this morning she states that is much better. Pain currently is controlled. No other complaints at this time. Physical Exam 2 Physical Exam: Dressings are clean, dry, and intact. Calves are soft and nontender. Neurovascular is intact. Toes are mobile. She has good dorsiflexion and plantarflexion of her left foot. Hemovac drainage was 125 mL from the previous shift. Results & Data ([facility]) Vital Signs (Past 12 Hours) Vital Signs Temp Pulse Resp BP Pulse Ox 08/11/21 07:23 36.7 C 73 17 115/70 96 08/11/21 02:20 36.7 C 74 15 121/68 96 08/10/21 22:22 36.5 C 76 15 111/65 95 Laboratory Results Laboratory Results WBC 8.91 K/uL (4.8-10.8) 08/11/21 06:02 RBC 3.56 M/uL (4.2-5.4) L 08/11/21 06:02 Hgb 11.1 g/dL (12.0-16.0) L 08/11/21 06:02 Hct 31.3 % (37-47) L 08/11/21 06:02 MCV 87.9 fL (80-100) 08/11/21 06:02 MCH 31.2 pg (25-34) 08/11/21 06:02 MCHC 35.5 g/dL (32-36) 08/11/21 06:02 RDW Std Deviation 40.8 fL (36.4-46.3) 08/11/21 06:02 RDW Coeff of [place] 12.6 % (11.5-14.5) 08/11/21 06:02 Plt Count 198 K/uL (130-400) 08/11/21 06:02 MPV 9.5 fL (7.4-10.4) 08/11/21 06:02 Sodium 125 mmol/L (136-145) L 08/11/21 06:02 Potassium 3.5 mmol/L (3.5-5.1) 08/11/21 06:02 Chloride 96 mmol/L (98-107) L 08/11/21 06:02 Carbon Dioxide 22 mmol/L (21-32) 08/11/21 06:02 Anion Gap 7 (3-11) 08/11/21 06:02 BUN 17 mg/dl (6-23) 08/11/21 06:02 Creatinine 0.54 mg/dl (0.6-1.2) L 08/11/21 06:02 Est Cr Clr Drug Dosing 77.4 ml/min 08/11/21 06:02 Est GFR ( Amer) 102.6 ml/min 08/11/21 06:02 Est GFR (Non-Af Amer) 88.5 ml/min 08/11/21 06:02 BUN/Creatinine Ratio 31.5 (10-20) H 08/11/21 06:02 Glucose 112 mg/dl (70-99(Fasting)) H 08/11/21 06:02 Calcium 8.2 mg/dl (8.5-10.1) L 08/11/21 06:02 SARS-CoV-2, RNA, NAAT NEGATIVE (NEGATIVE) 08/10/21 05:33 Impressions Knee X-Ray 08/10/21 09:47 XR knee LT 1 or 2V routine HISTORY: 80 years-old Female Surgical Post Op left knee total joint arthroplasty COMPARISON: None TECHNIQUE: 3 views of the left knee FINDINGS: Total joint arthroplasty with patellar resurfacing. Anterior midline skin lakshmi are noted along with expected postoperative soft tissue swelling and deep tissue air with surgical drainage catheter. Ill-defined sclerosis involving the mid femoral diaphysis medullary space is likely benign. No acute fracture or unexpected opaque foreign body. IMPRESSION: Total joint arthroplasty and patella resurfacing with expected postoperative changes. ACT 112: Negative or not required by law. The above report was generated using voice recognition software. It may contain grammatical, syntax or spelling errors. Electronically signed by: Tez Enrique M.D. 08/10/2021 10:13 AM
[2021-08-11] MEDS: ATENOLOL 50 MG TABLET PO SCH (08:29)
[2021-08-11] MEDS: CeleBREX 200 MG CAP PO SCH ×2 (08:30→20:24)
[2021-08-11] MEDS: CHOLECALCIFEROL 5,000 UNITS 125 MCG TAB PO SCH (08:30)
[2021-08-11] MEDS: DOCUSATE SODIUM 100 MG CAP PO SCH ×2 (08:30→20:24)
[2021-08-11] MEDS: TOCOPHERYL, DL-ALPHA 100 UNITS CAP PO SCH (08:31)
[2021-08-11] MEDS: FAMOTIDINE 40 MG TABLET PO SCH ×2 (08:31→20:24)
[2021-08-11] MEDS: ASPIRIN 81 MG ECTAB PO SCH ×2 (08:31→20:23)
[2021-08-11] MEDS: LORATADINE 10 MG TAB PO SCH (08:32)
[2021-08-11] MEDS: THIAMINE HCL 100 MG TAB PO SCH (08:32)
[2021-08-11] MEDS: CALCIUM 600MG + VIT D 400 IU TAB PO SCH (08:33)
[2021-08-11] MEDS: FOLIC ACID 1 MG TAB PO SCH (08:33)
[2021-08-11] MEDS: MULTIVITAMIN TAB PO SCH (08:35)
[2021-08-11] MEDS: VITAMIN B COMPLEX TAB PO SCH (08:35)
[2021-08-11] MEDS: ASCORBIC ACID 500 MG TAB PO SCH (08:35)
[2021-08-11] MEDS ORDERED: NON-FORMULARY MEDICATION (Vitamin A-Vitamin C-Vit E-Min Tablet) PO SCH (09:00)
[2021-08-11] MEDS ORDERED: NON-FORMULARY MEDICATION (Multivit-Min-Iron-Fa-Lutein [Centrum Silver Women] 8 mg iron-400 PO SCH (09:00)
[2021-08-11] MEDS ORDERED: CHLORTHALIDONE 25 MG TAB PO SCH (09:00)
[2021-08-11] MEDS ORDERED: CRANBERRY EXTRACT 250 MG PO SCH (09:00)
[2021-08-11] MEDS ORDERED: NON-FORMULARY MEDICATION (Collagen-Biotin-Ascorbic Acid 500 mg-800 mcg- 50 mg Capsule) PO SCH (09:00)
[2021-08-11] MEDS ORDERED: NON-FORMULARY MEDICATION (Milk Thistle 500 mg Capsule) PO SCH (09:00)
[2021-08-11] MEDS ORDERED: NON-FORMULARY MEDICATION (Glucosamine-Chondroitin [Osteo Bi-Flex] 250-200 mg Tablet) PO SCH (09:00)
[2021-08-11 09:58] LABS: Creatinine Urine Random 126.4 mg/dl
[2021-08-11 11:05] LABS: BUN Creatinine Ratio 27.8 (10-20); Calcium 9.1 mg/dl (8.5-10.1); Est GFR (Non-African American) 78.5 ml/min; Potassium 3.1 mmol/L (3.5-5.1)
[2021-08-11] MEDS ORDERED: POTASSIUM CHLORIDE CRTAB 20 MEQ TABCR PO STA (13:16)
--- NOTE | 2021-08-11 13:24 | Hospitalist Progress Note ---
Date of Service August 11, 2021 Assessment & Plan (1) Acute hyponatremia: Plan: Na 125 noted on post operative labwork this am. This is multifactorial including chlorthalidone use, which was held in addition to ADH release in response to surgical stress which is appropriate. She is not drinking water excessively and there is no uncontrolled nausea or pain. As she has time away from surgery and her body resets off the chlorthalidone, this should likely reset. Likewise, aldosterone is also released in response to hypotension or hypovolemia which can happen intraoperatively/perioperatively. This is addition to chlorthalidone use is likely responsible for her hypokalemia. Hold chlorthalidone for now-may be able to restart in one week when follows up with her PCP Give NSS x 500cc Repeat BMP tonight and in am No more than 133 as goal in next 12 hours. (2) Primary osteoarthritis of left knee: Plan: per Ortho pain is controlled, Activity and wound management per ortho Hemovac in place. (3) Hypertension: Plan: Currently BP at goal. Will cont to watch closely with chlorthalidone on hold. Cont atenolol. (4) Alcohol dependence: Plan: Drinks 3-4 whiskey drinks daily DELGADO as protocol with as needed oral Ativan Daily thiamine and folic acid Typically, we will see alcoholics with a chronically lower sodium because they tend toward a "tea&toast" diet. In review of her outpatient records, her Na since 2019 is 130-134, consistent with this. Currently no signs/symptoms of withdrawal (5) Prediabetes: (6) Post-operative state: (7) DVT prophylaxis: Plan: ASA twice daily Dispo: PEr ortho, need to stay in hospital until Na is >130. PCP: HASMUKH Marroquin FULL CODE Thank you for this consultation. We will follow the patient with you during their hospital stay. You can reach a member of the [facility] Hospitalist Team 11/09 via hospitalist role on tiger text. Gardenia Gallardo [facility] and Anticipated Discharge Date Admission Date: August 10, 2021 Subjective s/p left total knee arthroscopy denies pain or nausea Na 125 this am Pt on chlorthalidone for years. Feeling well and reports ready to go home hasn't had a BM yet Review of Systems Review of Systems: All systems were reviewed and negative except as indicated in subjective above. Physical Exam Physical Exam: CONSTITUTIONAL: WNWD, vitals as above, generally well- appearing, NAD EYES: normal conjunctivae, no scleral icterus, ENT: external ear and nose normal, MMM NECK: trachea midline RESPIRATORY: clear to auscultation bilaterally, no crackles, rales or wheezes, normal respiratory effort CARDIOVASCULAR: regular rate and rhythm, S1 and 2 heard without murmurs, gallops or rubs, no JVD, no peripheral edema, CHEST: inspection of chest was normal GASTROINTESTINAL: soft, nontender, ND, no guarding MUSCULOSKELETAL: strength 5/5 throughout in upper extremities, left leg in surgical bandage with hemovac in place and ice on top of dressing, LE are warm and well perfused bilaterally, SKIN: warm and dry, NEUROLOGIC: CN 2-12 grossly intact, no sensory deficit, normal cognition, normal speech, no tremor, no gross focal deficit. PSYCHIATRIC: alert cooperative and oriented to person, place and time. Euthymic mood, makes good eye contact, language grossly intact, recent and remote memory grossly intact. Results & Data Results & Data ([facility]) Vital Signs (Past 12 Hours) Vital Signs Temp Pulse Resp BP Pulse Ox 08/11/21 11:28 36.9 C 70 18 112/71 97 08/11/21 08:28 72 125/72 08/11/21 07:23 36.7 C 73 17 115/70 96 08/11/21 02:20 36.7 C 74 15 121/68 96 Laboratory Results Short CBC 08/11/21 Range/Units 06:02 WBC 8.91 (4.8-10.8) K/uL Hgb 11.1 L (12.0-16.0) g/dL Hct 31.3 L (37-47) % Plt Count 198 (130-400) K/uL BMP 08/11/21 08/11/21 06:02 10:19 Sodium 125 L 127 L Potassium 3.5 3.1 L Chloride 96 L 93 L Carbon Dioxide 22 26 BUN 17 20 Creatinine 0.54 L 0.72 Glucose 112 H 123 H Calcium 8.2 L 9.1 Medications Administered Current Inpatient Medications Acetaminophen (Acetaminophen 500 Mg Tab) 1,000 mg PO Q8 [facility] Stop: 09/09/21 13:59 Last Admin: 08/11/21 06:22 Dose: 1,000 mg Documented by: Ascorbic Acid (Ascorbic Acid 500 Mg Tab) 1,500 mg PO QAM [facility] Stop: 09/10/21 08:59 Last Admin: 08/11/21 08:35 Dose: 1,500 mg Documented by: Aspirin (Aspirin 81 Mg Ectab) 81 mg PO BID [facility] Stop: 09/09/21 20:59 Last Admin: 08/11/21 08:31 Dose: 81 mg Documented by: Atenolol (Atenolol 50 Mg Tablet) 50 mg PO QAM [facility] Stop: 09/10/21 08:59 Last Admin: 08/11/21 08:29 Dose: 50 mg Documented by: Bisacodyl (Bisacodyl 10 Mg Supp) 10 mg VT DAILY PRN PRN Reason: Constipation Stop: 09/09/21 12:02 Celecoxib (Celebrex 200 Mg Cap) 200 mg PO BID [facility] Stop: 09/09/21 20:59 Last Admin: 08/11/21 08:30 Dose: 200 mg Documented by: Docusate Sodium (Docusate Sodium 100 Mg Cap) 100 mg PO BID [facility] Stop: 09/09/21 20:59 Last Admin: 08/11/21 08:30 Dose: 100 mg Documented by: Famotidine (Famotidine 40 Mg Tablet) 40 mg PO BID [facility] Stop: 09/09/21 20:59 Last Admin: 08/11/21 08:31 Dose: 40 mg Documented by: Folic Acid (Folic Acid 1 Mg Tab) 1 mg PO QAM [facility] Stop: 09/09/21 13:59 Last Admin: 08/11/21 08:33 Dose: 1 mg Documented by: Hydromorphone HCl (Hydromorphone Inj 0.5 Mg/0.5 Ml Syr) 0.25 mg IV Q4H PRN PRN Reason: Pain or Pre PT Stop: 08/24/21 12:02 Loratadine (Loratadine 10 Mg Tab) [facility] [place] [place] Stop: 09/10/21 08:59 Last Admin: 08/11/21 08:32 Dose: 10 mg Documented by: Lorazepam (Lorazepam 0.5 Mg Tab) 0.5 mg PO HS PRN PRN Reason: Sleep Stop: 09/09/21 12:02 Last Admin: 08/10/21 23:08 Dose: 0.5 mg Documented by: Lorazepam (Lorazepam 1 Mg Tab) 1 - 3 mg PO UD PRN; Protocol PRN Reason: EtoH Withdrawal AWSS 6-10+ Stop: 09/09/21 13:07 Magnesium Hydroxide (Magnesium Hydroxide Susp 30 Ml Udc) 30 ml PO Q6H PRN PRN Reason: Constipation Stop: 09/09/21 12:02 Metoclopramide HCl (Metoclopramide Hcl Inj 5 Mg/Ml 2 Ml Vial) 10 mg IV Q6H PRN PRN Reason: Nausea And Vomiting Stop: 09/09/21 12:02 Multivitamins (Multivitamin Tab) 1 tab PO [facility] Stop: 09/10/21 08:59 Last Admin: 08/11/21 08:35 Dose: 1 tab Documented by: Multivitamins/Minerals (Calcium 600mg + Vit D 400 Iu Tab) 1 tab PO [facility] Stop: 09/10/21 08:59 Last Admin: 08/11/21 08:33 Dose: 1 tab Documented by: Naloxone HCl (Naloxone Hcl 0.4 Mg/1 Ml Vial/Carp) 0.1 mg IV Q5M PRN PRN Reason: Oversedation/Resp Depression Stop: 09/09/21 12:02 Ondansetron HCl (Ondansetron Inj 2 Mg/Ml 2 Ml Vial) 4 mg IV Q6H PRN PRN Reason: Nausea And Vomiting Stop: 09/09/21 12:02 Oxycodone HCl (Oxycodone Hcl Ir 5 Mg Tab (Immediate Release)) 5 - 10 mg PO Q4H PRN PRN Reason: Pain or Pre PT Stop: 08/24/21 12:02 Sennosides (Senna 8.6 Mg Tab) 17.2 mg PO [facility] Stop: 09/09/21 20:59 Last Admin: 08/10/21 20:44 Dose: 17.2 mg Documented by: Thiamine HCl (Thiamine Hcl 100 Mg Tab) 100 mg PO [facility] Stop: 09/09/21 13:59 Last Admin: 08/11/21 08:32 Dose: 100 mg Documented by: Vitamin B Complex (Vitamin B Complex Tab) 1 tab PO [facility] Stop: 09/10/21 08:59 Last Admin: 08/11/21 08:35 Dose: 1 tab Documented by: Vitamin D (Cholecalciferol 5,000 Units 125 Mcg Tab) 5,000 units PO [facility] Stop: 09/10/21 08:59 Last Admin: 08/11/21 08:30 Dose: 5,000 units Documented by: Vitamin E (Tocopheryl, Dl-Alpha 100 Units Cap) 200 units PO QAM [facility] Stop: 09/10/21 08:59 Last Admin: 08/11/21 08:31 Dose: 200 units Documented by:
[2021-08-11] MEDS ORDERED: SODIUM CHLORIDE 0.9% 500 ML IV SCH (13:45)
[2021-08-11 20:02] LABS: Anion Gap 6 (3-11); BUN Creatinine Ratio 20.4 (10-20); Blood Urea Nitrogen 23 mg/dl (6-23); Calcium 8.6 mg/dl (8.5-10.1); Carbon Dioxide 24 mmol/L (21-32); Chloride 96 mmol/L (98-107); Est GFR (African American) 52.8 ml/min; Est GFR (Non-African American) 45.5 ml/min; Glucose 110 mg/dl (70-99(Fasting)); Sodium 126 mmol/L (136-145)
[2021-08-11] MEDS: SENNA 8.6 MG TAB PO SCH (20:24)
[2021-08-11] MEDS: LORazepam 0.5 MG TAB PO PRN (22:10)
[2021-08-12] MEDS: ACETAMINOPHEN 500 MG TAB PO SCH (06:39)
[2021-08-12 06:40] LABS: Hematocrit (blood only) 33.1 % (37-47); Hemoglobin 11.4 g/dL (12.0-16.0); Mean Corpuscular Hemoglobin 30.7 pg (25-34); Mean Corpuscular Hgb Conc 34.4 g/dL (32-36); Mean Corpuscular Volume 89.2 fL (80-100); Mean Platelet Volume 9.1 fL (7.4-10.4); Platelet Count 202 K/uL (130-400); RDW Coefficient of Variation 12.9 % (11.5-14.5); Red Blood Count 3.71 M/uL (4.2-5.4); White Blood Count 6.82 K/uL (4.8-10.8)
[2021-08-12 07:07] LABS: BUN Creatinine Ratio 21.1 (10-20); Calcium 8.6 mg/dl (8.5-10.1); Est GFR (African American) 85.3 ml/min; Est GFR (Non-African American) 73.6 ml/min
--- NOTE | 2021-08-12 07:19 | Orthopedic Progress Note ---
Date of Service August 12, 2021 Assessment & Plan (1) Primary osteoarthritis of left knee: Plan: Postop day 2 status post left total knee arthroplasty PT/OT protocols. Weightbearing as tolerated. DVT prophylaxis-aspirin p.o. twice daily, MARANDA Nayak. Pain management as written DC planning-patient is planning for outpatient PT upon discharge, d/c after PT today Admission and Anticipated Discharge Date Admission Date: August 10, 2021 Subjective POD # 2 s/p Left TKA Review of Systems Constitutional: no fever, no chills and no sweats Respiratory: no cough and no dyspnea Cardiovascular: no chest pain and no dyspnea Gastrointestinal: no abdominal pain, no nausea and no vomiting Physical Exam Physical Exam: Vital Signs Temp 36.7 C 08/12/21 07:04 Pulse 65 08/12/21 07:04 Resp 18 08/12/21 07:04 BP 148/82 H 08/12/21 07:04 Pulse Ox 97 08/12/21 07:04 Intake & Output 08/11/21 08/12/21 08/12/21 18:59 06:59 18:59 Intake Total 500 / 500 Output Total 50 / 80 30 / 80 Balance -50 / 420 470 / 420 Intake: IV 500 / 500 Sodium Chlorid e 0.9% 500 ml @ 500 / 500 80 mls/hr IV . Q6H15M [facility] Rx#: [id number] Output: Drain Output 50 / 80 30 / 80 Left Knee Hemo vac 50 / 80 30 / 80 Other: # Unmeasured Voi ds 1 1 1 Musculoskeletal: left lower extremity: NVDI, calf SNT, negative joe sign. DP palpable, able to wiggle toes/ankle movement without difficulty. incision clean and dry. expected post-operative bruising noted. Results & Data ([facility]) Vital Signs (Past 12 Hours) Vital Signs Temp Pulse Resp BP BP Pulse Ox 08/12/21 07:04 36.7 C 65 18 148/82 H 97 08/12/21 03:14 36.7 C 72 18 130/80 96 08/11/21 23:21 36.6 C 60 18 133/70 98 08/11/21 20:00 37.2 C 68 18 143/82 H 95 Laboratory Results Laboratory Results WBC 6.82 K/uL (4.8-10.8) 08/12/21 06:25 RBC 3.71 M/uL (4.2-5.4) L 08/12/21 06:25 Hgb 11.4 g/dL (12.0-16.0) L 08/12/21 06:25 Hct 33.1 % (37-47) L 08/12/21 06:25 MCV 89.2 fL (80-100) 08/12/21 06:25 MCH 30.7 pg (25-34) 08/12/21 06:25 MCHC 34.4 g/dL (32-36) 08/12/21 06:25 RDW Std Deviation 42.0 fL (36.4-46.3) 08/12/21 06:25 RDW Coeff of [place] 12.9 % (11.5-14.5) 08/12/21 06:25 Plt Count 202 K/uL (130-400) 08/12/21 06:25 MPV 9.1 fL (7.4-10.4) 08/12/21 06:25 Sodium 132 mmol/L (136-145) L 08/12/21 06:25 Potassium 4.0 mmol/L (3.5-5.1) 08/12/21 06:25 Chloride 100 mmol/L (98-107) 08/12/21 06:25 Carbon Dioxide 28 mmol/L (21-32) 08/12/21 06:25 Anion Gap 4 (3-11) 08/12/21 06:25 BUN 16 mg/dl (6-23) 08/12/21 06:25 Creatinine 0.76 mg/dl (0.6-1.2) D 08/12/21 06:25 Est Cr Clr Drug Dosing 55.0 ml/min 08/12/21 06:25 Est GFR ( Amer) 85.3 ml/min 08/12/21 06:25 Est GFR (Non-Af Amer) 73.6 ml/min 08/12/21 06:25 BUN/Creatinine Ratio 21.1 (10-20) H 08/12/21 06:25 Glucose 92 mg/dl (70-99(Fasting)) 08/12/21 06:25 Osmolality 265 mOsm/kg (280-300) L 08/11/21 10:19 Calcium 8.6 mg/dl (8.5-10.1) 08/12/21 06:25 Urine Osmolality 625 mOsm/kg (500-800) 08/11/21 09:20 Ur Random Creatinine 126.4 mg/dl 08/11/21 09:20 Ur Random Sodium 107 mmol/L 08/11/21 09:20 SARS-CoV-2, RNA, NAAT NEGATIVE (NEGATIVE) 08/10/21 05:33 Impressions Knee X-Ray 08/10/21 09:47 XR knee LT 1 or 2V routine HISTORY: 80 years-old Female Surgical Post Op left knee total joint arthroplasty COMPARISON: None TECHNIQUE: 3 views of the left knee FINDINGS: Total joint arthroplasty with patellar resurfacing. Anterior midline skin lakshmi are noted along with expected postoperative soft tissue swelling and deep tissue air with surgical drainage catheter. Ill-defined sclerosis involving the mid femoral diaphysis medullary space is likely benign. No acute fracture or unexpected opaque foreign body. IMPRESSION: Total joint arthroplasty and patella resurfacing with expected postoperative changes. ACT 112: Negative or not required by law. The above report was generated using voice recognition software. It may contain grammatical, syntax or spelling errors. Electronically signed by: Tez Enrique M.D. 08/10/2021 10:13 AM
[2021-08-12] MEDS: ASCORBIC ACID 500 MG TAB PO SCH (08:18)
[2021-08-12] MEDS: CHOLECALCIFEROL 5,000 UNITS 125 MCG TAB PO SCH (08:18)
[2021-08-12] MEDS: ATENOLOL 50 MG TABLET PO SCH (08:18)
[2021-08-12] MEDS: TOCOPHERYL, DL-ALPHA 100 UNITS CAP PO SCH (08:18)
[2021-08-12] MEDS: CALCIUM 600MG + VIT D 400 IU TAB PO SCH (08:18)
[2021-08-12] MEDS: CeleBREX 200 MG CAP PO SCH (08:18)
[2021-08-12] MEDS: DOCUSATE SODIUM 100 MG CAP PO SCH (08:18)
[2021-08-12] MEDS: ASPIRIN 81 MG ECTAB PO SCH (08:18)
[2021-08-12] MEDS: FOLIC ACID 1 MG TAB PO SCH (08:19)
[2021-08-12] MEDS: LORATADINE 10 MG TAB PO SCH (08:19)
[2021-08-12] MEDS: THIAMINE HCL 100 MG TAB PO SCH (08:19)
[2021-08-12] MEDS: FAMOTIDINE 40 MG TABLET PO SCH (08:19)
[2021-08-12] MEDS: MULTIVITAMIN TAB PO SCH (08:19)
[2021-08-12] MEDS: VITAMIN B COMPLEX TAB PO SCH (08:19)
--- NOTE | 2021-08-15 13:11 | Discharge Summary ---
Date of Service August 15, 2021 Admission HPI Per Admitting Provider 80 year old female with PMHx significant for HTN, SUNNY, GERD presents with ongoing left knee pain. Pain is interfering with her daily activities. She has failed conservative measures and would like to proceed with surgical intervention. Patient denies headaches, sweats, fevers, chills, double vision, blurred vision, cough, sore throat, dysphagia, chest pain, sob, wheezing, n/v/d/c, numbness, tingling, fatigue, urinary symptoms, mood disorders. ROS positive for left knee pain and stiffness. Admission Exam Per Admitting Provider Constitutional: well developed and well nourished; no acute distress Eyes: PERRL, conjunctivae normal, anicteric sclerae ENMT: external ear and nose normal, oropharynx normal Neck: trachea midline, no thyromegaly Respiratory: normal respiratory effort, lungs clear to auscultation Cardiovascular: RRR, no murmur, no edema Musculoskeletal: Left knee: Varus alignment. Medial joint line and medial patellar tenderness. Mild swelling. Moderate crepitation. Positive Hayley's. Positive valgus stress, negative varus. ROM 0-130 degrees. Skin: no rashes, warm and dry Neurologic: patellar DTR's 2+ bilat, sensation intact Psychiatric: A+Ox3, euthymic affect Principal Diagnosis left knee osteoarthritis Discharge Exam Physical Exam: Vital Signs Temp 36.7 C 08/12/21 07:04 Pulse 65 08/12/21 07:04 Resp 18 08/12/21 07:04 BP 148/82 H 08/12/21 07:04 Pulse Ox 97 08/12/21 07:04 Intake & Output 08/11/21 08/12/21 08/12/21 18:59 06:59 18:59 Intake Total 500 / 500 Output Total 50 / 80 30 / 80 Balance -50 / 420 470 / 420 Intake: IV 500 / 500 Sodium Chlorid e 0.9% 500 ml @ 500 / 500 80 mls/hr IV . Q6H15M FIONA Rx#: [id number] Output: Drain Output 50 / 80 30 / 80 Left Knee Hemo vac 50 / 80 30 / 80 Other: # Unmeasured Voi ds 1 1 1 Musculoskeletal: left lower extremity: NVDI, calf SNT, negative joe sign. DP palpable, able to wiggle toes/ankle movement without difficulty. incision clean and dry. expected post-operative bruising noted. Constitutional well developed and well nourished; no acute distress Discharge Data Allergies Allergy/AdvReac Type Severity Reaction Status Date / Time adhesive Allergy Intermediate Skin Verified 08/10/21 05:30 blistering Penicillins Allergy Intermediate Hives Verified 08/10/21 05:30 clindamycin Allergy Hot Verified 08/10/21 05:30 flashes, flushing meperidine [From Demerol] AdvReac Unknown Vomiting Verified 08/10/21 05:30 Consultations 08/08/21 11:40 Consult Hospitalist Routine Procedures Performed Operation Date: 08/10/21 07:15 Actual Procedures p Left Total Knee Arthroplasty(Left) - Mario Redman MD Ordered Studies 08/10/21 08:41 US - OR guided needle placemen Stat Hospital Course (1) Primary osteoarthritis of left knee: Postop day 1 status post left total knee arthroplasty Hyponatremia-patient was noted to be hyponatremic prior to surgery around 133. Morning she is at 125. Will discuss with medicine service. PT/OT protocols. Weightbearing as tolerated. DVT prophylaxis-aspirin p.o. twice daily, SCDs, MARANDA hose. Pain management as written DC planning-patient is planning for outpatient PT upon discharge. Postop day 2 status post left total knee arthroplasty PT/OT protocols. Weightbearing as tolerated. DVT prophylaxis-aspirin p.o. twice daily, SCDs, MARANDA hose. Pain management as written Labs-hyponatremia improved DC planning-patient is planning for outpatient PT upon discharge, d/c after PT today Lab Results 08/10/21 08/11/21 08/11/21 Range/Units 05:33 06:02 06:02 WBC 8.91 (4.8-10.8) K/uL RBC 3.56 L (4.2-5.4) M/uL Hgb 11.1 L (12.0-16.0) g/dL Hct 31.3 L (37-47) % MCV 87.9 (80-100) fL MCH 31.2 (25-34) pg MCHC 35.5 (32-36) g/dL RDW Std Deviation 40.8 (36.4-46.3) fL RDW Coeff of Sanford 12.6 (11.5-14.5) % Plt Count 198 (130-400) K/uL MPV 9.5 (7.4-10.4) fL Sodium 125 L (136-145) mmol/L Potassium 3.5 (3.5-5.1) mmol/L Chloride 96 L (98-107) mmol/L Carbon Dioxide 22 (21-32) mmol/L Anion Gap 7 (3-11) BUN 17 (6-23) mg/dl Creatinine 0.54 L (0.6-1.2) mg/dl Est Cr Clr Drug Dosing 77.4 ml/min Est GFR ( Amer) 102.6 ml/min Est GFR (Non-Af Amer) 88.5 ml/min BUN/Creatinine Ratio 31.5 H (10-20) Glucose 112 H (70-99(Fasting)) mg/dl Osmolality (280-300) mOsm/kg Calcium 8.2 L (8.5-10.1) mg/dl Urine Osmolality (500-800) mOsm/kg Ur Random Creatinine mg/dl Ur Random Sodium mmol/L SARS-CoV-2, RNA, NAAT NEGATIVE (NEGATIVE) 08/11/21 08/11/21 08/11/21 Range/Units 09:20 09:20 10:19 WBC (4.8-10.8) K/uL RBC (4.2-5.4) M/uL Hgb (12.0-16.0) g/dL Hct (37-47) % MCV (80-100) fL MCH (25-34) pg MCHC (32-36) g/dL RDW Std Deviation (36.4-46.3) fL RDW Coeff of Sanford (11.5-14.5) % Plt Count (130-400) K/uL MPV (7.4-10.4) fL Sodium 127 L (136-145) mmol/L Potassium 3.1 L (3.5-5.1) mmol/L Chloride 93 L (98-107) mmol/L Carbon Dioxide 26 (21-32) mmol/L Anion Gap 8 (3-11) BUN 20 (6-23) mg/dl Creatinine 0.72 (0.6-1.2) mg/dl Est Cr Clr Drug Dosing 58.0 ml/min Est GFR ( Amer) 91.0 ml/min Est GFR (Non-Af Amer) 78.5 ml/min BUN/Creatinine Ratio 27.8 H (10-20) Glucose 123 H (70-99(Fasting)) mg/dl Osmolality (280-300) mOsm/kg Calcium 9.1 (8.5-10.1) mg/dl Urine Osmolality 625 (500-800) mOsm/kg Ur Random Creatinine 126.4 mg/dl Ur Random Sodium 107 mmol/L SARS-CoV-2, RNA, NAAT (NEGATIVE) 08/11/21 08/11/21 08/11/21 Range/Units 10:19 19:10 20:15 WBC (4.8-10.8) K/uL RBC (4.2-5.4) M/uL Hgb (12.0-16.0) g/dL Hct (37-47) % MCV (80-100) fL MCH (25-34) pg MCHC (32-36) g/dL RDW Std Deviation (36.4-46.3) fL RDW Coeff of Sanford (11.5-14.5) % Plt Count (130-400) K/uL MPV (7.4-10.4) fL Sodium 126 L (136-145) mmol/L Potassium TNP 4.0 D (3.5-5.1) mmol/L Chloride 96 L (98-107) mmol/L Carbon Dioxide 24 (21-32) mmol/L Anion Gap 6 (3-11) BUN 23 (6-23) mg/dl Creatinine 1.13 D (0.6-1.2) mg/dl Est Cr Clr Drug Dosing 37.0 ml/min Est GFR ( Amer) 52.8 ml/min Est GFR (Non-Af Amer) 45.5 ml/min BUN/Creatinine Ratio 20.4 H (10-20) Glucose 110 H (70-99(Fasting)) mg/dl Osmolality 265 L (280-300) mOsm/kg Calcium 8.6 (8.5-10.1) mg/dl Urine Osmolality (500-800) mOsm/kg Ur Random Creatinine mg/dl Ur Random Sodium mmol/L SARS-CoV-2, RNA, NAAT (NEGATIVE) 08/12/21 08/12/21 Range/Units 06:25 06:25 WBC 6.82 (4.8-10.8) K/uL RBC 3.71 L (4.2-5.4) M/uL Hgb 11.4 L (12.0-16.0) g/dL Hct 33.1 L (37-47) % MCV 89.2 (80-100) fL MCH 30.7 (25-34) pg MCHC 34.4 (32-36) g/dL RDW Std Deviation 42.0 (36.4-46.3) fL RDW Coeff of Sanford 12.9 (11.5-14.5) % Plt Count 202 (130-400) K/uL MPV 9.1 (7.4-10.4) fL Sodium 132 L (136-145) mmol/L Potassium 4.0 (3.5-5.1) mmol/L Chloride 100 (98-107) mmol/L Carbon Dioxide 28 (21-32) mmol/L Anion Gap 4 (3-11) BUN 16 (6-23) mg/dl Creatinine 0.76 D (0.6-1.2) mg/dl Est Cr Clr Drug Dosing 55.0 ml/min Est GFR ( Amer) 85.3 ml/min Est GFR (Non-Af Amer) 73.6 ml/min BUN/Creatinine Ratio 21.1 H (10-20) Glucose 92 (70-99(Fasting)) mg/dl Osmolality (280-300) mOsm/kg Calcium 8.6 (8.5-10.1) mg/dl Urine Osmolality (500-800) mOsm/kg Ur Random Creatinine mg/dl Ur Random Sodium mmol/L SARS-CoV-2, RNA, NAAT (NEGATIVE) Total Time Total Time Spent Total Time Spent (In Minutes): 20 Discharge Plan Discharge Items Patient Disposition: Home - Self-Care Reason For Visit: Left Knee Osteoarthritis Discharge Diagnosis: Left knee osteoarthritis Condition on Discharge: Good Activity: Per Instructions section Weightbearing Comment: WBAT with walker Non-emergency contact: Surgeon Call non-emergency contact if: you have any medication questions, your pain is not controlled, your pain is concerning for you, you have a fever, your temperature is above 101, your wound has increased redness and your wound has increased drainage Follow-up/Referrals: Brielle Marroquin PA-C [Primary Care Provider] - Diet: Regular Addtl Attending Provider Instructions: ACTIVITY RECOMMENDATIONS: SELF CARE INSTRUCTIONS AFTER TOTAL KNEE REPLACEMENT A. You may need to continue a physical therapy program after discharge from the hospital. There are several options available to you. Your doctor will assist you in selecting the best one for you. 1. An out-patient facility 2 to 3 times a week for therapy or home therapy. 2. Continue working on all exercises taught to you in the hospital. Your goals should be to increase bending of your knee to 90 degrees and beyond and to fully straighten your knee. B. You may progress at your own pace from walking with a walker or crutches to a cane; then to no assistive devices. C. Make walking a part of your daily routine. Be up as much as comfortable with rest periods throughout the day. Rest with leg elevation is very important. Use the ice wrap frequently for the first 3-4 weeks. D. There are no restrictions on activities. You may ride in a car, shop, participate in court orderly and all social activities. E. Wear the long elastic stockings (MARANDA hose) 20 hours a day for 2 weeks after surgery. They can be removed several times a day for laundering and for a bath. F. You may shower, no tub baths until cleared by your doctor. SPECIAL CARE INSTRUCTIONS: VERY IMPORTANT TO READ AND REVIEW A. There are a few signs you need to watch for after you are home. Call [facility] if you notice any of the followin. Increased severe knee pain. Some pain is expected especially when you exercise. 2. Increased swelling in your leg or knee; pain or swelling of the calf muscle in either lower leg. 3. Any fluid drainage from the incision. 4. Shortness of breath or chest pain. B. Please call [facility] at if you have any concerns or questions about your operation or recovery. The doctor or his nurse will return your call promptly. C. You must take antibiotics before dental work, bladder, bowel or other surgery. Your doctor will provide you with a permanent care to carry describing this precaution. IMPORTANT: * REMEMBER TO TAKE ASPIRIN, 81 MG, TWICE DAILY FOR 4 WEEKS UNLESS OTHERWISE DIRECTED. THIS IS YOUR BLOOD THINNER. * HIGH RISK PATIENTS MAY BE PRESCRIBED A STRONGER BLOOD THINNER. THIS WILL BE PROVIDED AT DISCHARGE. * CALL IF INCREASED PAIN, REDNESS, DRAINAGE OR FEVER GREATER THAT 101. * WEAR MARANDA HOSE 20 HOURS PER DAY FOR 2 WEEKS. You may remove the jenniffer wrap in 48 hours. After this you may get your incision indirectly wet in the shower. Do not soak. Continue daily dressing changes to keep incision covered. . IF INCISION IS LEAKING THROUGH DRESSING, CALL THE OFFICE . FOLLOW UP VISIT: If appointment is not already scheduled: Please call [facility] to make a follow-up appointment for 2 weeks after your surgery at . Pending Studies at Discharge: No Stand-Alone Forms: My [facility]ZO[facility], Smoking Cessation Medications and DC Order Prescriptions: New acetaminophen [Tylenol Extra Strength] 500 mg Tablet 1,000 mg PO Q8 21 Days Qty: 126 RF: 0 aspirin 81 mg Tablet,Delayed Release (Dr/Ec) 81 mg PO BID 30 Days Qty: 60 RF: 0 celecoxib [Celebrex] 200 mg Capsule 200 mg PO BID 30 Days Qty: 60 RF: 0 oxycodone 5 mg Tablet 5 - 10 mg PO Q6H PRN (Reason: pain) Qty: 30 RF: 0 docusate sodium 100 mg Capsule 100 mg PO BID 10 Days Qty: 20 RF: 0 Continued milk thistle 500 mg Capsule 500 mg PO QAM RF: 0 famotidine 40 mg Tablet 40 mg PO BID RF: 0 atenolol-chlorthalidone 50-25 mg Tablet 1 tab PO QAM RF: 0 lorazepam 0.5 mg Tablet 0.5 mg PO HS PRN (Reason: Sleep) RF: 0 vitamin B complex Tablet 1 tab PO QAM RF: 0 ascorbic acid (vitamin C) 1,500 mg Tablet Extended Release 1,500 mg PO QAM RF: 0 loratadine 10 mg Tablet 10 mg PO QAM RF: 0 vitamin E 200 unit Tablet 45 mg PO QAM RF: 0 vitamin A-vitamin C-vit E-min Tablet 1 tab PO QAM RF: 0 cranberry extract 250 mg Tablet 259 mg PO QAM RF: 0 calcium citrate-vitamin D3 [Citracal + D Maximum] 315 mg-6.25 mcg (250 unit) Tablet 1 tab PO QAM RF: 0 cholecalciferol (vitamin D3) [Vitamin D3] 125 mcg (5,000 unit) Tablet 125 mcg PO QAM RF: 0 Prolia 60 mg/mL Syringe 60 mg SUBCUT UD RF: 0 Centrum Silver Women 8 mg iron-400 mcg-300 mcg Tablet 1 tab PO QAM RF: 0 fpqvztzq-pdxzsp-tkwzvobs acid 500 mg-800 mcg- 50 mg Capsule 1 cap PO QAM RF: 0 Discontinued piroxicam 10 mg Capsule 10 mg PO UD PRN (Reason: PAIN) RF: 0 glucosamine-chondroitin [Osteo Bi-Flex] 250-200 mg Tablet 2 tab PO QAM RF: 0 Fish Oil Capsule 1,000 mg PO QAM RF: 0 aspirin 81 mg Capsule 81 mg PO QAM RF: 0 Discharge Orders: Discharge Order (Routine); Ordered 08/12/21 Ordered By: Michael Lafleur Admission Data Admit Date/Time: 08/10/21 09:47 Attending Provider: Mario Redman Admit Provider: Mario Redman Primary Care Provider: Brielle Marroquin Other Providers: Gardenia Gallardo Other Interventions: Discharge Summary Assessment (RN) Last Done: 08/12/21 10:37
== END 2021-08-12 10:51 | disposition home or self-care (01) ==
LOC: 3E 05:02 → ASU 05:02